=== PATIENT | male | born 2000 | race Asian ===

== ENCOUNTER 2025-07-19 13:27 | Emergency (ER) | payer OTHER ==
[~2025-07-19] VITALS: Ht 177.8 cm; Wt 75.0 kg
[2025-07-19 13:28] VITALS: PULSE 75; RESP 16; O2SAT 100
[2025-07-19 13:36] VITALS: BP 133/71; TEMP 36.9; O2SAT 99
[2025-07-19] MEDS: TETRACAINE 0.5% OPHTH DROPS 4ML BOTHEYE ONE (14:52)
[2025-07-19] MEDS: FLUORESCEIN SODIUM 1MG/STRIP BOTHEYE ONE (14:52)
== END 2025-07-19 15:16 | disposition left against medical advice (07) ==
LOC: ER 13:27
DX: H57.10 Ocular pain, unspecified eye (principal)
CPT/HCPCS: 99283